=== PATIENT | female | born 1995 | race Two or more races ===

== ENCOUNTER 2019-03-01 17:23 | Emergency (ER) | payer OTHER ==
--- NOTE | 2019-03-01 17:43 | ER Document Report ---
ED Medical Screen (RME) - General Chief Complaint: Abdominal Pain Stated Complaint: VAGINAL BLEEDING Time Seen by Provider: 03/01/19 17:41 Mode of Arrival: Ambulatory Information source: Patient Notes: 24-year-old female presented to ED for complaint of spotting and cramping. She is 2 para 1. Last menstrual period was 12/21/2018. 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 She states is taken a long time to get her in. She states she is having a headache back pain cramping and spotting. Patient is a lert oriented respirations regular and unlabored speaking in full sentences walks with even steady gait. I have greeted and performed a rapid initial assessment of this patient. A comprehensive ED assessment and evaluation of the patient, analysis of test results and completion of medical decision making process will be conducted by an additional ED providers. Dictation of this chart was performed using voice recognition software; therefore, there may be some unintended grammatical errors. - Related Data Allergies/Adverse Reactions: No Known Allergies Allergy (Unverified 03/01/19 17:25) Physical Exam - Vital signs Vitals: Temp Pulse Resp BP Pulse Ox 98.2 F 89 16 119/71 98 03/01/19 17:27 03/01/19 17:27 03/01/19 17:27 03/01/19 17:27 03/01/19 17:27 Course - Vital Signs Vital signs: Temp Pulse Resp BP Pulse Ox 98.2 F 89 16 119/71 98 03/01/19 17:27 03/01/19 17:27 03/01/19 17:27 03/01/19 17:27 03/01/19 17:27
[2019-03-01 18:12] LABS: ABSOLUTE EOSINOPHILS # (AUTO) 0.1 10^3/uL (0.0-0.6); ABSOLUTE LYMPHOCYTES (AUTO) 2.6 10^3/uL (0.5-4.7); ABSOLUTE MONOCYTES (AUTO) 0.4 10^3/uL (0.1-1.4); ABSOLUTE NEUT (AUTO) 5.7 10^3/uL (1.7-8.2); BASOPHILS % (AUTO) 0.4 % (0-2); EOSINOPHILS % (AUTO) 1.4 % (0-6); HEMOGLOBIN 12.8 g/dL (12.0-15.5); LYMPHOCYTES % (AUTO) 29.2 % (13-45); MEAN CORPUSCULAR HEMOGLOBIN 28.7 pg (27.0-33.4); MEAN CORPUSCULAR HGB CONC 34.7 g/dL (32.0-36.0); MEAN CORPUSCULAR VOLUME 83 fl (80-97); MONOCYTES % (AUTO) 4.8 % (3-13); PLATELET COUNT 235 10^3/uL (150-450); RED BLOOD COUNT 4.47 10^6/uL (3.72-5.28); RED CELL DISTRIBUTION WIDTH 13.5 % (11.5-14.0); SEGMENTED NEUTROPHILS % (AUTO) 64.2 % (42-78); TOTAL CELLS COUNTED % (AUTO) 100 %; WHITE BLOOD COUNT 8.8 10^3/uL (4.0-10.5)
[2019-03-01 18:22] LABS: APPEARANCE,URINE CLEAR; BILIRUBIN,URINE NEGATIVE (NEGATIVE); COLOR,URINE STRAW; GLUCOSE, URINE NEGATIVE (NEGATIVE); KETONES,URINE NEGATIVE (NEGATIVE); LEUKOCYTE ESTERASE,URINE NEGATIVE (NEGATIVE); NITRITE,URINE NEGATIVE (NEGATIVE); PROTEIN,URINE NEGATIVE (NEGATIVE); URINE SPECIFIC GRAVITY 1.012; UROBILINOGEN,URINE NEGATIVE mg/dL (<2.0)
[2019-03-01 18:24] LABS: ALANINE AMINOTRANSFERASE 18 U/L (9-52); ALBUMIN 3.9 g/dL (3.5-5.0); ALKALINE PHOSPHATASE 72 U/L (38-126); ANION GAP 9 (5-19); ASPARTATE AMINO TRANSFERASE 17 U/L (14-36); BILIRUBIN,DIRECT 0.2 mg/dL (0.0-0.4); BILIRUBIN,TOTAL 0.2 mg/dL (0.2-1.3); BLOOD UREA NITROGEN 7 mg/dL (7-20); CALCIUM 9.1 mg/dL (8.4-10.2); CARBON DIOXIDE 23 mmol/L (22-30); CHLORIDE 104 mmol/L (98-107); GLUCOSE 113 mg/dL (75-110); SODIUM 136.2 mmol/L (137-145); TOTAL PROTEIN 6.9 g/dL (6.3-8.2)
--- NOTE | 2019-03-01 18:34 | RADIOLOGY REPORT (SQ) ---
EXAM DESCRIPTION: U/S OB TRANSVAG W/DOPPLER COMPLETED DATE/TIME: 03/01/2019 6:24 pm REASON FOR STUDY: 10 weeks preg spotting and cramping COMPARISON: None. TECHNIQUE: Transvaginal static and realtime grayscale images acquired of the pelvis. Additional rebecca cted spectral and color Doppler images recorded. All images stored on PACs. bHCG: Pending. CLINICAL DATES: 10 weeks LIMITATIONS: None. FINDINGS: FETUS: Single Living intrauterine . ULTRASOUND EGA: 12 weeks 0 days ULTRASOUND KENNETH: 09/13/2019 EFW: Not applicable less than 20 weeks. CRL: 5.9 cm FHR: 162 beats per minute. SURVEY: No visualized anomalies. AMNIOTIC FLUID: Adequate amount. PLACENTA: Not yet developed due to early gestation. SUBCHORIONIC BLEED: No SIZE OF BLEED: Not applicable. UTERUS: No masses. No anomalies. CERVICAL LENGTH: 3.2 cm Closed. RIGHT ADNEXA: Normal ovary with normal vascular flow. No adnexal free fluid. No adnexal masses. LEFT ADNEXA: Ovary not identified due to poor acoustical window. No adnexal free fluid. No adnexal masses. FREE FLUID: None. OTHER: No other significant finding. IMPRESSION: LIVING INTRAUTERINE . EGA 12 weeks 0 days Trimester of : First - 0 to 13 weeks. TECHNICAL DOCUMENTATION: JOB ID: [id number] [place]-72 2010 [employer]- All Rights Reserved Reading location - IP/workstation name: [email or web address]
--- NOTE | 2019-03-01 22:33 | ER Document Report ---
ED GI/ - General Chief Complaint: Abdominal Pain Stated Complaint: VAGINAL BLEEDING Time Seen by Provider: 03/01/19 17:41 Mode of Arrival: Ambulatory Notes: Patient is a 24-year-old female, at uncertain gestation in the first trimester, that comes to the emergency department for chief complaint of intermittent mild abdominal cramping and spotting over the past day. She denies any current pain or any current symptoms. She denies injury. She does report morning sickness episodes but denies current nausea or vomiting. She is on vitamins, has had a , denies medical history otherwise. She is still pending her initial DENTAL APPLIANCE FIXER appointment. - Related Data Allergies/Adverse Reactions: No Known Allergies Allergy (Unverified 03/01/19 17:25) Past Medical History - General Information source: Patient - Social History Smoking Status: Never Smoker Chew tobacco use (# tins/day): No Frequency of alcohol use: None Drug Abuse: None Lives with: Family Family History: Reviewed & Not Pertinent Patient has suicidal ideation: No Patient has homicidal ideation: No - Medical History Medical History: Negative Renal/ Medical History: Denies: Hx Peritoneal Dialysis Past Surgical History: Reports: Hx Section - Immunizations Immunizations up to date: Yes Hx Diphtheria, Pertussis, Tetanus Vaccination: Yes Review of Systems - Review of Systems Constitutional: No symptoms reported EENT: No symptoms reported Cardiovascular: No symptoms reported Respiratory: No symptoms reported Gastrointestinal: See HPI Genitourinary: See HPI Female Genitourinary: See HPI Musculoskeletal: No symptoms reported Skin: No symptoms reported Hematologic/Lymphatic: No symptoms reported Neurological/Psychological: No symptoms reported Physical Exam - Vital signs Vitals: Temp Pulse Resp BP Pulse Ox 98.2 F 89 16 119/71 98 03/01/19 17:27 03/01/19 17:27 03/01/19 17:27 03/01/19 17:27 03/01/19 17:27 - Notes Notes: GENERAL: Alert, interacts well. No acute distress. HEAD: Normocephalic, atraumatic. EYES: Pupils equal, round, and reactive to light. Extraocular movements intact. ENT: Oral mucosa moist, tongue midline. Oropharynx unremarkable. Airway patent. NECK: Full range of motion. Supple. Trachea midline. LUNGS: Clear to auscultation bilaterally, no wheezes, rales, or rhonchi. No respiratory distress. HEART: Regular rate and rhythm. No murmur ABDOMEN: Soft, non-tender. Non-distended. Bowel sounds present in all 4 quadrants. GENITOURINARY: Deferred EXTREMITIES: Moves all 4 extremities spontaneously. No edema, normal radial and dorsalis pedis pulses bilaterally. No cyanosis. BACK: no cervical, thoracic, lumbar midline tenderness. No saddle anesthesia, normal distal neurovascular exam. Moves all extremities in full range of motion. NEUROLOGICAL: Alert and oriented x3. Normal speech. Cranial nerves II through XII grossly intact. PSYCH: Normal affect, normal mood. SKIN: Warm, dry, normal turgor. No rashes or lesions noted. Course - Re-evaluation Re-evalutation: Patient is well-appearing. No current symptoms reported including no current bleeding. Soft nontender abdomen. Unremarkable vital signs. CBC, chemistry, urinalysis unremarkable. hCG is very elevated. RhoGam is not indicated. Ultrasound showing live intrauterine without any obvious abnormality. I discussed all results with patient, recommendations, ultrasound details, follow-up, and return precautions. Patient requests Reglan for vomiting at home. She was provided with this. Patient states satisfaction and agreement with plan. - Vital Signs Vital signs: Temp Pulse Resp BP Pulse Ox 98.5 F 79 16 116/66 99 03/01/19 23:00 03/01/19 23:00 03/01/19 23:00 03/01/19 23:00 03/01/19 23:00 - Laboratory Result Diagrams: 03/01/19 17:18 03/01/19 17:18 Laboratory results interpreted by me: 03/01/19 03/01/19 17:18 17:18 Sodium 136.2 L Creatinine 0.44 L Glucose 113 H Beta HCG, Quant 349035.00 H Urine Blood SMALL H Discharge - Discharge Clinical Impression: Abdominal cramping affecting , Vaginal bleeding before 22 weeks gestation Condition: Stable Disposition: HOME, SELF-CARE Additional Instructions: Your ultrasound shows a living in the uterus at 12 weeks with no obvious complications. Your remaining lab work-up is reassuring. Your blood type is O+. Take Reglan if needed for nausea/vomiting, perform pelvic precautions (no intense exercise such as lifting, jumping, running, sexual intercourse, etc. until cleared by DENTAL APPLIANCE FIXER). Return for any concerning symptoms including severe pain, bleeding, dizziness, passing out, or any other concerning or worsening symptoms. Prescriptions: Metoclopramide HCl [Reglan] 5 mg PO ASDIR PRN #30 tablet PRN Reason:
[2019-03-01 23:28] VITALS: BP 116/66
== END 2019-03-01 23:05 | disposition home or self-care (01) ==
LOC: ER 17:23
DX: O46.91 Antepartum hemorrhage, unspecified, first trimester (principal); R10.9 Unspecified abdominal pain; Z3A.12 12 weeks gestation of pregnancy
CPT/HCPCS: 36415; 76817; 80053; 81001; 84702; 85025; 86900; 86901; 93976; 99284